=== PATIENT | male | born 1945 | race Caucasian/White ===

== ENCOUNTER 2020-12-01 15:08 | Inpatient (IN) | payer MEDICARE, BC ==
[~2020-12-01] VITALS: Ht 195.6 cm; Wt 92.1 kg
--- NOTE | 2020-12-01 00:40 | NUR ---
RN NOTE SLEEP MEDICATION REQUESTED BY PATIENT, ADMINISTERED ORDERED. WILL CONTINUE TO MONITOR. Addendum: 12/02/20 at 0103 by THOMAS CEDILLO RN DISREGARD THIS NOTE, INCORRECT TIME
--- NOTE | 2020-12-01 15:19 | NUR ---
DR. HERNÁNDEZ SPEAKING WITH DR. MONROE
--- NOTE | 2020-12-01 15:30 | NUR ---
DIFFICULTY BREATHING, SOB WHILE HAVING DIALYSIS. PATIENT A/OX3, WHEELED TO ER BED 8. ATTACHED TO THE CANDY BAR ATTENDANT. PATIENT'S ON 90% ON ROOM AIR, APPLIED O2 AT 2LPM VIA NC WITH SPO2 INCREASED TO 96%.
[2020-12-01] MEDS ORDERED: PANT40TA49 PO (15:31)
[2020-12-01] MEDS ORDERED: CARV25TA PO (15:31)
[2020-12-01] MEDS ORDERED: CLOP75TA15 PO (15:31)
[2020-12-01] MEDS ORDERED: MEXI200C PO (15:31)
[2020-12-01] MEDS ORDERED: ASPI-992 PO (15:31)
[2020-12-01] MEDS ORDERED: VIT1TABL46 PO (15:31)
[2020-12-01] MEDS ORDERED: SEVE800T7 PO (15:31)
[2020-12-01] MEDS ORDERED: SPIR25TA PO (15:31)
[2020-12-01] MEDS ORDERED: ENAL2.5T70 PO (15:31)
[2020-12-01] MEDS ORDERED: ROSU20TA2 PO (15:31)
[2020-12-01] MEDS ORDERED: UBID100C13 PO (15:31)
--- NOTE | 2020-12-01 15:35 | NUR ---
IV LINE ESTABLISHED, BLOOD DRAWN.
--- NOTE | 2020-12-01 15:42 | NUR ---
RCW CASSIUS CATH COVERED WITH DRY DRESSING.
--- NOTE | 2020-12-01 15:49 | NUR ---
MOVE SHEET SUBMITTED AND CALLED FOR TELE BED.
[2020-12-01 16:08] LABS: CALCIUM, SERUM 8.8 mg/dL (8.5-10.1); CARBON DIOXIDE 29 mmol/L (21-32); CHLORIDE 99 mmol/L (98-107); CREATININE 6.2 mg/dL (0.6-1.3); GLUCOSE 130 mg/dL (74-106); POTASSIUM 4.5 mmol/L (3.5-5.1); SODIUM SERUM 137 mmol/L (136-145); UREA NITROGEN, BLOOD 26 mg/dL (7-18)
--- NOTE | 2020-12-01 16:12 | NUR ---
COVID SWAB SENT
[2020-12-01 16:20] LABS: ALANINE AMINOTRANSFERASE 20 U/L (12-78); ALBUMIN 3.2 g/dL (3.4-5.0); ALKALINE PHOSPHATASE 141 U/L (46-116); ASPARTATE AMINOTRANSFERASE 19 U/L (15-37); BILIRUBIN,DIRECT 0.1 mg/dL (0.0-0.2); BILIRUBIN,TOTAL 0.3 mg/dL (0.2-1.0); TOTAL PROTEIN, SERUM 6.6 g/dL (6.4-8.2)
[2020-12-01 16:34] LABS: BASOPHILS % (AUTO) 0.7 % (0.0-2.0); HEMATOCRIT 29 % (39-51); HEMOGLOBIN 9.8 g/dL (13.5-17.5); LYMPHOCYTES # (AUTO) 0.5 K/uL (0.8-4.8); LYMPHOCYTES % (AUTO) 13.8 % (20.0-44.0); MEAN CORPUSCULAR HGB CONC 33 g/dl (31.0-36.0); MEAN CORPUSCULAR VOLUME 93 fL (80-96); MONOCYTES # (AUTO) 0.5 K/uL (0.1-1.30); MONOCYTES % (AUTO) 12.6 % (2.0-12.0); NEUTROPHILS # (AUTO) 2.8 K/uL (1.8-8.9); NEUTROPHILS % (AUTO) 71.9 % (43.0-81.0); PLATELET COUNT (AUTO) 120 K/uL (150-450); RED BLOOD CELL COUNT(AUTO) 3.16 MIL/uL (4.5-6.0); WHITE BLOOD COUNT (AUTO) 3.9 K/uL (4.3-11.0)
--- NOTE | 2020-12-01 16:47 | NUR ---
[facility] CALLED FASHION ILLUSTRATOR PAGED.
--- NOTE | 2020-12-01 17:26 | NUR ---
BED 101
--- NOTE | 2020-12-01 17:34 | NUR ---
REPORT GIVEN TO RAVI WONG FOR BLANCO.
[2020-12-01] MEDS ORDERED: ACETAMINOPHEN 325 MG TABLET PO PRN (18:00)
[2020-12-01] MEDS ORDERED: MAG HYDROX/AL HYDROX/SIMETH 30 ML UDC PO PRN (18:00)
[2020-12-01] MEDS ORDERED: ONDANSETRON HCL/PF 4 MG/2 ML VIAL IVP PRN (18:00)
[2020-12-01] MEDS ORDERED: HOME MED MISCELLANEOUS XX SCH (18:00)
[2020-12-01] MEDS ORDERED: MAGNESIUM HYDROXIDE 30 ML UDC PO PRN (18:00)
[2020-12-01] MEDS ORDERED: Z GUARD REMEDY 2 OZ OINT TP PRN (18:00)
--- NOTE | 2020-12-01 18:27 | NUR ---
PATIENT DENIES BEING ALLERGIC TO NSAIDS AND ACETAMINOPHEN. PHARMACY MADE AWARE.
--- NOTE | 2020-12-01 18:36 | NUR ---
PATIENT A/OX3, ON 2LPM VIA NC WITH SPO2 OF 99%, IN NO DISTRESS NOTED. TRANSFERRED TO ROOM 101 IN STABLE CONDITION.
--- NOTE | 2020-12-01 18:38 | NUR ---
TERRAZZO JOURNEYMAN NOTE: RECEIVED PT VIA [facility] IN STABLE CONDITION. PT ADMITTED DUE TO SOB DURING DIALYSIS THIS AFTERNOON. A+OX4, BP SLIGHTLY ELEVATED, 02 AT 2L VIA NC SPO2 100%. SOB WITH WITH EXERTION. HISTORY OF BILATERAL KIDNEY REMOVAL. SKIN INTACT. LEFT LOWER EXTREMITY 2+ EDEMA. MAGAZINE SUPERVISOR PLACED. PT ORIENTED TO THE ROOM AND CALL LIGHT.
--- NOTE | 2020-12-01 19:35 | NUR ---
RN OPENING NOTE REC'D PT IN BED. PT PT ON 2L OF O2 VIA NC. PT IS LABORED BREATHING. O2 SATURATION IS 96% AT THIS TIME. PT IS ON TELE MONITORING PRESENTS WITH NSR HR IN 70S. PT HAS HD ACCESS RIGHT CHEST WALL. IV NOTED RIGHT HAND, FLUSHED PATENT. NO S/S OF INFILTRATION NOTED. PT VERBALIZES HE DOES NOT PRODUCE URINE. SAFETY MEASURES IN PLACE. HOB ELEVATED, SIDE RAILS UP X2 BED LOCKED IN LOWEST POSITION WITH BED ALARM ON. CALL LIGHT WITHIN REACH. WILL CONT TO MONITOR CLOSELY.
--- NOTE | 2020-12-01 19:58 | NUR ---
1959 Patient was asking for his dose of carvedilol for tonight stating he did not receive a dose today. SANDRA Jaimes made aware and ordered to give a dose tonight. Order noted and carried out.
[2020-12-01 20:00] VITALS: BP 138/82
--- NOTE | 2020-12-01 20:00 | NUR ---
RN NOTE PT IS VERY ANXIOUS, REQUIRES A LOT OF VERBAL REASSURANCE. PT IS BETTER WHEN FAMILY IS INVOLVED.
[2020-12-01] MEDS ORDERED: CARVEDILOL 12.5 MG TABLET PO ONE (20:30)
[2020-12-01] MEDS ORDERED: EPOETIN ALFA (10,000 UNIT) 10,000 UNIT/ML VIAL IV ONE (21:00)
[2020-12-01] MEDS ORDERED: MEXILETINE PO SCH (21:00)
[2020-12-01] MEDS: MEXILETINE PO SCH (21:06)
--- NOTE | 2020-12-01 21:13 | NUR ---
RN NOTE PT HAS HD NURSE AT BEDSIDE, FAMILY DROPPED OFF HOME MEDICATION MEXILETINE. PT ANXIOUS, SEVERELY. PRESENTS CALMER WITH FAMILY AT BEDSIDE
--- NOTE | 2020-12-01 21:14 | NUR ---
RN NOTE @2009 PT CONSENT FOR HEMODIALYSIS COMPLETED PLACED IN CHART
--- NOTE | 2020-12-01 21:15 | NUR ---
RN NOTE @2044 CHRISTINE COLBERT TECH AT BEDSIDE DOING US OF HEART
--- NOTE | 2020-12-01 21:33 | NUR ---
Preliminary report of echocardiogram showed EF 20-25%~. Not able to complete echo as patient wanted to stop exam due to difficulty in breathing. Advised MARVIN Pires of initial results.
[2020-12-01] MEDS: SEVELAMER CARBONATE 800 MG TABLET PO SCH (22:45)
--- NOTE | 2020-12-01 22:53 | NUR ---
RN NOTE PT COMPLETED DIALYSIS, TOLERATED WELL. VERBALIZES FEELING BETTER. PT GOT 2L OUT. WILL NOW ADMIN CARVEDILOL AND RENVELA FROM EARLIER. WILL CONT TO MONITOR CLOSE.
[2020-12-01] MEDS: ZOLPIDEM TARTRATE 5 MG TABLET PO PRN (23:52)
[2020-12-02] VITALS: BP 127/66
--- NOTE | 2020-12-02 01:00 | NUR ---
RN NOTE ALL BELONGINGS ACCOUNTED FOR
--- NOTE | 2020-12-02 01:03 | NUR ---
RN NOTE 0045, SLEEP MEDICATION REQUESTED BY PATIENT, ADMINISTERED ORDERED. WILL CONTINUE TO MONITOR.
[2020-12-02 04:00] VITALS: BP 120/68
[2020-12-02] MEDS: MEXILETINE PO SCH ×3 (04:21→20:43)
[2020-12-02 06:04] LABS: BASOPHILS % (AUTO) 0.3 % (0.0-2.0); EOSINOPHILS % (AUTO) 0.9 % (0.0-6.0); HEMATOCRIT 28 % (39-51); HEMOGLOBIN 9.5 g/dL (13.5-17.5); LYMPHOCYTES # (AUTO) 0.8 K/uL (0.8-4.8); MEAN CORPUSCULAR HGB CONC 34 g/dl (31.0-36.0); MEAN CORPUSCULAR VOLUME 93 fL (80-96); MONOCYTES # (AUTO) 0.5 K/uL (0.1-1.30); MONOCYTES % (AUTO) 12.5 % (2.0-12.0); NEUTROPHILS # (AUTO) 2.9 K/uL (1.8-8.9); NEUTROPHILS % (AUTO) 68.3 % (43.0-81.0); PLATELET COUNT (AUTO) 98 K/uL (150-450); RED BLOOD CELL COUNT(AUTO) 3.04 MIL/uL (4.5-6.0); WHITE BLOOD COUNT (AUTO) 4.2 K/uL (4.3-11.0)
--- NOTE | 2020-12-02 06:38 | NUR ---
RN CLOSING NOTES NO SIGNIFICANT CHANGE IN PATIENT CONDITION. ALL NEEDS ATTENDED. FREE FLOATING MEDICATION, UNLABELED MEDICATION, IN SILVER METAL CAPSULE TIN SENT HOME WITH BROTHER ARA. PT REMAINS ON 3L OF O2 VIA NASAL CANNULA. TOLERATING WELL. NO SOB. NO DISTRESS NOTED. ALL DUE MEDS GIVEN. TOLERATED HEMODIALYSIS. 2L OUT. PT DENIES PAIN. SAFETY MEASURES IN PLACE. HOB ELEVATED, SIDE RAILS UP X2 BED LOCKED IN LOWEST POSITION WITH BED ALARM ON. CALL LIGHT WITHIN REACH. WILL ENDORSE TO DAY SHIFT RN FOR CONTINUATION OF CARE.
[2020-12-02 06:39] LABS: CALCIUM, SERUM 8.7 mg/dL (8.5-10.1); CARBON DIOXIDE 29 mmol/L (21-32); CHLORIDE 99 mmol/L (98-107); GLUCOSE 92 mg/dL (74-106); MAGNESIUM 2.2 mg/dL (1.8-2.4); PHOSPHORUS 5.1 mg/dL (2.5-4.9); POTASSIUM 4.6 mmol/L (3.5-5.1); SODIUM SERUM 136 mmol/L (136-145); UREA NITROGEN, BLOOD 32 mg/dL (7-18)
[2020-12-02 06:43] LABS: CHOLESTEROL 98 mg/dL (<200); CREATININE 7.6 mg/dL (0.6-1.3); HDL CHOLESTEROL 39 mg/dL (40-60); LDL 39 mg/dL (0-99); TRIGLYCERIDES 79 mg/dL (30-150)
[2020-12-02] MEDS ORDERED: PANTOPRAZOLE 40 MG TABLET.DR PO SCH (07:30)
[2020-12-02 08:00] VITALS: BP 133/72
[2020-12-02 09:15] LABS: EOSINOPHILS % (MANUAL) 2 % (0-4); LYMPHOCYTES % (MANUAL) 18 % (16-48); MONOCYTES % (MANUAL) 11 % (0-11.0); NEUTROPHILS % (MANUAL) 69 (42-76)
[2020-12-02] MEDS: SEVELAMER CARBONATE 800 MG TABLET PO SCH ×3 (09:56→18:00)
[2020-12-02] MEDS: PANTOPRAZOLE 40 MG TABLET.DR PO SCH (09:56)
[2020-12-02] MEDS: CARVEDILOL 12.5 MG TABLET PO SCH ×2 (09:57→17:00)
[2020-12-02] MEDS: VIT B CMPLX 3/FA/VIT C/BIOTIN 1 TAB TABLET PO SCH (10:00)
[2020-12-02] MEDS: CLOPIDOGREL BISULFATE 75 MG TABLET PO SCH (10:00)
[2020-12-02] MEDS: ATORVASTATIN 40 MG TABLET PO SCH (10:00)
[2020-12-02] MEDS: ASPIRIN 325 MG TABLET PO SCH (10:00)
[2020-12-02] MEDS: ENALAPRIL MALEATE (5 MG) 5 MG TABLET PO SCH ×2 (10:00→17:00)
[2020-12-02 12:00] VITALS: BP 113/62
[2020-12-02 16:00] VITALS: BP 123/64
--- NOTE | 2020-12-02 17:03 | NUR ---
Hemodialysis ongoing at this time. Mandeep Frankel RN
[2020-12-02 20:00] VITALS: BP 121/64
[2020-12-02] MEDS: ZOLPIDEM TARTRATE 5 MG TABLET PO PRN (21:27)
[2020-12-03] VITALS: BP 124/67
[2020-12-03 04:00] VITALS: BP 128/68
[2020-12-03] MEDS: MEXILETINE PO SCH ×3 (05:11→21:27)
--- NOTE | 2020-12-03 06:17 | NUR ---
AIRCRAFT ENGINE MECHANIC OVERHAUL NOTES AWAKE & RESPONSIVE. NOT IN ANY DISTRESS. NO SOB NOTED. DENIES ANY PAIN OR DISCOMFORT AT THIS TIME. ON TELE V-PACING @ 73 WITH IV-HL PATENT & INTACT. MONITORED ACCORDINGLY. CALL LIGHT WITHIN REACH. BED IN LOWEST POSITION. SR UP X 2 FOR SAFETY. WILL ENDORSE TO NEXT SHIFT.
[2020-12-03] MEDS: PANTOPRAZOLE 40 MG TABLET.DR PO SCH (07:59)
[2020-12-03] MEDS: SEVELAMER CARBONATE 800 MG TABLET PO SCH ×4 (07:59→17:34)
[2020-12-03] MEDS: ATORVASTATIN 40 MG TABLET PO SCH (08:00)
[2020-12-03] MEDS: VIT B CMPLX 3/FA/VIT C/BIOTIN 1 TAB TABLET PO SCH (08:00)
[2020-12-03] MEDS: CLOPIDOGREL BISULFATE 75 MG TABLET PO SCH (08:01)
[2020-12-03] MEDS: ASPIRIN 325 MG TABLET PO SCH (08:01)
[2020-12-03] MEDS: ENALAPRIL MALEATE (5 MG) 5 MG TABLET PO SCH ×2 (08:01→16:36)
[2020-12-03] MEDS: CARVEDILOL 12.5 MG TABLET PO SCH ×2 (08:01→16:37)
[2020-12-03 08:02] VITALS: BP 135/74
[2020-12-03] MEDS ORDERED: ZOLP10TA2 PO (11:49)
--- NOTE | 2020-12-03 18:43 | NUR ---
MS RN CLOSING NOTE PATIENT CURRENTLY LYING IN BED, AWAKE, WATCHING TV. CURRENTLY RECEIVING DIALYSIS. A/O X4. STABLE ON 3L O2 VIA NASAL CANNULA. NO SOB NOTED, NO DISTRESS/DISCOMFORT NOTED. PATIENT IS AMBULATORY BUT STAYS IN BED. IV ACCESS TO RIGHT HAND #20 AND RIGHT CHEST WALL HD CATH. BOTH INTACT AND PATENT. NO HENRY NOTED - PATIENT IS ANURIC. SAFETY MEASURES IN PLACE. CALL LIGHT WITHIN REACH. WILL ENDORSE TO FINE PATCHER NURSE FOR BLANCO.
--- NOTE | 2020-12-03 19:00 | NUR ---
PATIENT IS CLEAR TO DISCHARGE AFTER DIALYSIS. PATIENT WANTS TO DC TOMORROW AT 1PM.
[2020-12-03 20:00] VITALS: BP 100/45
[2020-12-03] MEDS: ZOLPIDEM TARTRATE 5 MG TABLET PO PRN (21:27)
[2020-12-04 01:30] VITALS: BP 120/66
--- NOTE | 2020-12-04 01:30 | NUR ---
MS/VOCAL TEACHER NOTE RECEIVED REPORT FROM DILEEP WONG IN [place]. PATIENT TRANSFERRED TO 3 W ROOM 306-1. PATIENT IS ALERT AND ORIENTED X 4. ABLE TO MAKE NEEDS KNOWN. DENIES PAIN AT THIS TIME. CONTINUES ON 3L O2 VIA NC WITH NO S/SX OF RESPIRATORY DISTRESS NOTED. IV ACCESS TO RIGHT HAND #20G INTACT, PATENT AND SALINE LOCKED. RIGHT CHEST WALL HEMODIALYSIS CATHETER INTACT. SKIN ASSESSMENT PERFORMED WITH SKIN CLEAN, DRY AND INTACT. VS UPON TRANSFER: BP 120/66 HR 78 RR 20 T 97.8 O2 SAT 97% ON 3L O2. PATIENT RESTING COMFORTABLY IN BED. PLAN TO DISCHARGE TOMORROW. PATIENT ORIENTED TO ROOM, CALL LIGHT AND UNIT. CALL LIGHT WITHIN REACH. ASPIRATION, FALL AND SAFETY PRECAUTIONS MAINTAINED. WILL CONTINUE TO MONITOR.
[2020-12-04] MEDS: MEXILETINE PO SCH (05:57)
--- NOTE | 2020-12-04 06:15 | NUR ---
MS/RN CLOSING NOTE PATIENT CURRENTLY SLEEPING IN BED. ALERT AND ORIENTED X 4. ABLE TO MAKE NEEDS KNOWN. DENIES PAIN AT THIS TIME. CONTINUES ON 3L O2 VIA NC WITH NO S/SX OF RESPIRATORY DISTRESS NOTED. IV ACCESS TO RIGHT HAND #20G INTACT, PATENT AND SALINE LOCKED. HD CATH TO RIGHT CHEST WALL INTACT. CALL LIGHT WITHIN REACH. ASPIRATION, FALL AND SAFETY PRECAUTIONS MAINTAINED. WILL ENDORSE PLAN OF CARE TO ONCOMING SHIFT.
--- NOTE | 2020-12-04 07:30 | NUR ---
RECEIVED PT. IN AM ALERT AND ORIENTED X4,PLEASANT,COOPERATIVE,MED COMPLIANT.VS STABLE,PLANS ON DISCHARGE TODAY.
[2020-12-04 08:00] VITALS: BP 122/68
[2020-12-04] MEDS: ASPIRIN 325 MG TABLET PO SCH (08:50)
[2020-12-04] MEDS: SEVELAMER CARBONATE 800 MG TABLET PO SCH (08:51)
[2020-12-04] MEDS: VIT B CMPLX 3/FA/VIT C/BIOTIN 1 TAB TABLET PO SCH (08:51)
[2020-12-04] MEDS: CARVEDILOL 12.5 MG TABLET PO SCH (08:51)
[2020-12-04 08:52] VITALS: BP 122/68
[2020-12-04] MEDS: ATORVASTATIN 40 MG TABLET PO SCH (08:52)
[2020-12-04] MEDS: ENALAPRIL MALEATE (5 MG) 5 MG TABLET PO SCH (08:52)
[2020-12-04] MEDS: CLOPIDOGREL BISULFATE 75 MG TABLET PO SCH (08:52)
[2020-12-04] MEDS: PANTOPRAZOLE 40 MG TABLET.DR PO SCH (08:54)
--- NOTE | 2020-12-04 10:00 | NUR ---
JOVAN IN PLANS TO DC TODAY,VAS CATH IN PACE AND DRESSING INTACT.
--- NOTE | 2020-12-04 13:00 | NUR ---
HEP LOCK REMOVED,PAPERS SIGNED INCLUDING BELONGING SHEET.TAKEN TO LOBBY ACCOMPANIED BY [facility] AND PT'S BROTHER.
== END 2020-12-04 13:00 | disposition home health service (06) | DRG 280 ==
LOC: ER 15:18 → TELE1 17:27 → MEDSG1 12-03 17:53 → MED 12-04 01:16
PROVIDERS: ADMIT Nurse Practitioner Acute Care; ATTEND Nurse Practitioner Acute Care
PROC: 5A1D70Z Performance of Urinary Filtration, Intermittent, Less than 6 Hours Per Day (ICD-10-PCS; principal; 2020-12-01)
DX: I13.2 Hypertensive heart and chronic kidney disease with heart failure and with stage 5 chronic kidney disease, or end stage renal disease (principal); I50.23 Acute on chronic systolic (congestive) heart failure; I21.A1 Myocardial infarction type 2; N18.6 End stage renal disease; J18.9 Pneumonia, unspecified organism; J98.11 Atelectasis; J90 Pleural effusion, not elsewhere classified; I42.9 Cardiomyopathy, unspecified; I25.10 Atherosclerotic heart disease of native coronary artery without angina pectoris; D69.6 Thrombocytopenia, unspecified; Z99.2 Dependence on renal dialysis; Z85.528 Personal history of other malignant neoplasm of kidney; Z20.822 Contact with and (suspected) exposure to COVID-19; I25.2 Old myocardial infarction; Z88.5 Allergy status to narcotic agent; Z88.0 Allergy status to penicillin; Z88.8 Allergy status to other drugs, medicaments and biological substances; Z79.82 Long term (current) use of aspirin; Z79.02 Long term (current) use of antithrombotics/antiplatelets; Z79.899 Other long term (current) drug therapy; Z95.5 Presence of coronary angioplasty implant and graft; Z90.5 Acquired absence of kidney; D63.8 Anemia in other chronic diseases classified elsewhere; E78.5 Hyperlipidemia, unspecified
CPT/HCPCS: 36415; 71045-TC; 80048-TC; 80061-TC; 80076-TC; 83735-TC; 83880; 84100-TC; 84443-TC; 84484-TC; 85025-TC; 85730-TC; 86706; 87081-TC; 87340; 90935-TC; 93307-TC; C9803; G0378; J0885; J2405; J7030; U0003